=== PATIENT | female | born 2000 ===

== ENCOUNTER 2022-12-16 09:56 | Outpatient (CLI) | payer OTHER ==
--- NOTE | 2022-12-17 00:53 | XRAY Report ---
PROCEDURE: Abdomen 1 View X-Ray INDICATIONS: ABDOMINAL PAIN RUQ TECHNIQUE: One view of the abdomen acquired. COMPARISON: None. FINDINGS: Surgical changes and devices: None. Bowel: Bowel gas pattern is normal. Soft tissues: No suspicious abdominal calcifications. Visualized solid organ contours appear normal in size. Bones: No suspicious bony lesions. IMPRESSION: Nonspecific nonobstructive bowel gas pattern. Reviewed by: Christopher Saenz MD on 12/17/2022 12:51 AM PDT Approved by: Christopher Saenz MD on 12/17/2022 12:51 AM PDT Station ID: [id number]
== END 2022-12-16 23:59 | disposition home or self-care (01) ==
LOC: EDBD → DI.N 09:56
PROVIDERS: ATTEND Physician Assistant Medical
DX: R10.11 Right upper quadrant pain (principal)